=== PATIENT | female | born 1955 | race Caucasian/White ===

== ENCOUNTER → 2020-03-19 07:47 | Outpatient (CLI) | payer OTHER, SELFPAY ==
[2020-03-19] MEDS: COVID-19 VACC(MODERNA-1)/PF 100 MCG/0.5 ML VIAL IM (07:52)
== END ==
PROVIDERS: Visit Provider Internal Medicine
DX: Z23 Encounter for immunization (principal)
CPT/HCPCS: 0011A; 91301

== ENCOUNTER → 2020-04-16 07:37 | Outpatient (CLI) | payer OTHER, SELFPAY ==
[2020-04-16] MEDS: COVID-19 VACC #2, MRNA(MOD) 100 MCG/0.5 ML VIAL IM (07:40)
== END ==
PROVIDERS: Visit Provider Internal Medicine
DX: Z23 Encounter for immunization (principal)
CPT/HCPCS: 0012A; 91301

== ENCOUNTER 2021-01-11 06:28 | Day surgery (SDC) | payer OTHER, SELFPAY ==
[2021-01-11 06:50] VITALS: BP 146/86; PULSE 59; RESP 16; TEMP 36.8; O2SAT 100; BMI 22.6
[2021-01-11 07:03] LABS: COVID19 -Nasal RAPID Negative (Negative)
[2021-01-11 07:05] VITALS: BMI 22.6
[2021-01-11] MEDS: LACTATED RINGERS 1,000 ML 42 ML IV (07:07)
--- NOTE | 2021-01-11 07:55 | PM.HP.1 ---
History of Present Illness History of Present Illness Date Patient Seen: 01/11/21 Time Patient Seen: 07:55 Chief complaint: COLONOSCOPY Narrative: Personal history of colon polyps Patient History Family & Social History Social History: household members spouse Tobacco & Substance use: Smoking Status Never smoker alcohol intake frequency holiday/special occasion Substance Use Type marijuana Meds Home Medications and Allergies Allergies Allergy/AdvReac Type Severity Reaction Status Date / Time Sulfa (Sulfonamide AdvReac i feel Verified 01/11/21 06:48 Antibiotics) like there are bugs under my skin Review of Systems Review of Systems ROS: Yes All systems reviewed with the patient and are negative except as otherwise documented Exam Vital Signs (past 8 hours): - 01/11/21 06:50 Temperature 98.3 F Pulse Rate 59 L Respiratory Rate 16 Blood Pressure 146/86 H Pulse Oximetry 100 Oxygen Delivery Method Room Air Const General: cooperative and comfortable Orientation: alert HENMT Head: normocephalic Ears: external ears normal Nose: external nose normal Face and sinus: normal facial exam Mouth: oral mucosae normal Eyes General: appearance normal, both eyes and all related structures Neck Neck: normal visual inspection Chest Chest: normal inspection of the chest Resp Effort & Inspection: normal respiratory effort Cardio Rate: regular rate Heart Sounds: no murmurs GI Inspection: normal to inspection Palpation: soft and No tender Skin General: no rashes or lesions noted and No jaundice Neuro General: patient alert and moves all extremities Cognition: normal cognition Speech: speech normal Extrem General: no pedal edema Psych Appearance: grossly normal Objective Labs Labs: Laboratory Results - last 24 hr 01/10/21 06:40 SARS-CoV-2 (PCR) Negative Assessment & Plan Assessment & Plan narrative: Personal history of colon polyps. Colonoscopy is planned for today. Time Spent With Patient Critical Care time: I spent a total of [] minutes of critical care time on this patient's care today; this time is exclusive of procedural time.
--- NOTE | 2021-01-11 07:57 | PM.PREOP ---
Pre-operative Note COVID-19 COVID-19 status: Negative Result date/Date tested (Pos, Neg/Pending): 01/10/21 Interval Note History & Physical reviewed/Exam performed by Physician: Yes Changes to H&P: Yes H&P completed within 30 days and has changed as indicated here:: today ASA Class (for procedural sedation): I
--- NOTE | 2021-01-11 08:18 | PM.OP.COLON ---
Operative Date/Time/Diagnoses Date of procedure: 01/11/21 Time of procedure: 08:18 Pre-op diagnosis: Personal history of colon polyps Post-op diagnosis: same Procedure & Clinicians Study performed: Colonoscopy Same procedure as scheduled: Yes Indications: Personal history of colon polyps Surgeon: Thomas Berman Procedure Notes SCOAP/Timeout: Done Procedure in detail: After the risks and benefits were explained, written and verbal informed consent was obtained. The patient was brought into the procedure room and placed into the left lateral decubitus position. Please see nurse litigation coordinator details. Digital rectal examination was accomplished. The scope was introduced into the patient and advanced under direct visualization to the cecum as identified by the appendiceal orifice and ileocecal valve. The scope was slowly withdrawn to carefully examine the mucosa for any defects or lesions. Comprehensive imaging was accomplished throughout the rectum including the dentate line. The colon was decompressed, the scope was then removed from the patient who tolerated the procedure well. Pediatric colonoscope poor prep Scope withdrawal time: 6 minutes Sedation minutes: 15 Specimen(s): none sent Complications: none Impression: Prep was rather poor. Many areas had retained solid stool that could not be adequately cleansed with irrigation. Within the limitations of bowel prep I did not see any significant pathology. Patient had grade 2 internal nonbleeding nonthrombosed hemorrhoids. Endoscopic diagnosis 1. Suboptimal bowel prep 2. Grade 2 hemorrhoids Post-procedure Recommendations: Colonoscopy in 1 year Plan for aftercare: Repeat colonoscopy with an extra day of bowel prep in the next year or so would be appropriate. Disposition: PACU
[2021-01-11 08:19] VITALS: BP 107/67; PULSE 49; RESP 14; TEMP 36.3; O2SAT 98
[2021-01-11 08:24] VITALS: BP 105/67; PULSE 49; RESP 14; O2SAT 98
[2021-01-11 08:29] VITALS: BP 117/75; PULSE 52; RESP 12; O2SAT 98
[2021-01-11 08:34] VITALS: BP 115/75; PULSE 48; RESP 13; O2SAT 97
--- NOTE | 2021-01-11 08:40 | SUR.PHASEI ---
PACU in time = 0817. Computer will not allow me to change the time.
[2021-01-11 08:46] VITALS: BP 136/80; PULSE 49; TEMP 36.2; O2SAT 12
== END 2021-01-11 08:57 | disposition home or self-care (01) ==
PROVIDERS: PCP Physician Assistant; Referring Provider Internal Medicine Gastroenterology; Visit Provider Internal Medicine Gastroenterology
PROC: 0DJD8ZZ Inspection of Lower Intestinal Tract, Via Natural or Artificial Opening Endoscopic (ICD-10-PCS; CPT 45378; principal; 2021-01-11 08:00)
DX: Z12.11 Encounter for screening for malignant neoplasm of colon (principal); Z86.010 Personal history of colon polyps; Z20.822 Contact with and (suspected) exposure to COVID-19; K64.1 Second degree hemorrhoids
CPT/HCPCS: 45378; 87635; J2704

== ENCOUNTER → 2021-01-14 15:10 | Outpatient (CLI) | payer OTHER, SELFPAY ==
[2021-01-14] MEDS: COVID-19 VACC #3, MRNA(MOD) 50 MCG/0.25 ML VIAL IM (15:13)
== END ==
PROVIDERS: PCP Physician Assistant; Visit Provider Internal Medicine
DX: Z23 Encounter for immunization (principal)
CPT/HCPCS: 0013A; 91301

== ENCOUNTER → 2022-03-13 09:11 | Outpatient (CLI) | payer MEDICARE, SELFPAY ==
[2022-03-13 10:25] LABS: Add Manual Diff / Slide Review NO; Basophils Absolute Auto 0 /uL (0-100); Basophils Percent Auto 0.7 % (0-2); Eosinophils Absolute Auto 100 /uL (0-450); Eosinophils Percent Auto 0.9 % (2-4); Hematocrit 40.1 % (36-46); Hemoglobin 13.8 g/dL (12.0-16.0); Lymphocytes Absolute Auto 1200 /uL (1100-4500); Lymphocytes Percent Auto 21.4 % (25-40); Mean Corpuscular HGB Conc 34.3 % (30-36); Mean Corpuscular Hemoglobin 31.6 PG (26-34); Mean Corpuscular Volume 92.2 fL (80-100); Monocytes Absolute Auto 400 /uL (0-900); Monocytes Percent Auto 6.7 % (3-14); Neutrophils Absolute Auto 4000 /uL (1500-7000); Neutrophils Percent Auto 70.3 % (50-75); Platelet Count 227 X10^3/uL (150-400); Red Blood Cell Count 4.35 X10^6/uL (4.0-5.2); White Blood Cell Count 5.7 X10^3/uL (4.5-11.0)
[2022-03-13 10:43] LABS: Alanine Aminotransferase 24 IU/L (<35); Albumin 4.4 g/dL (3.5-5.0); Albumin Globulin Ratio 1.4 (1.0-2.8); Alkaline Phosphatase 68 U/L (38-126); Aspartate Aminotransferase 29 IU/L (14-36); BUN Creatinine Ratio 15.4 (6-22); Bilirubin Total 0.6 mg/dL (0.2-1.3); Blood Urea Nitrogen 12 mg/dL (7-17); Calcium 9.1 mg/dL (8.4-10.2); Carbon Dioxide 30 mmol/L (22-32); Chloride 103 mmol/L (98-107); Cholesterol 210 mg/dL (140-199); Estimated Glomerular Filt Rate > 60 mL/min (>60); Globulin 3.2 g/dL (1.7-4.1); Glucose 87 mg/dL (80-110); HDL Cholesterol 52 mg/dL (40-60); HEMOLYSIS < 15 (0-50); LDL Cholesterol Calculated 132 mg/dL (<100); Potassium 4.1 mmol/L (3.4-5.1); Sodium 139 mmol/L (137-145); Total Protein 7.6 g/dL (6.3-8.2); Triglycerides 132 mg/dL (35-150)
== END ==
PROVIDERS: PCP Family Medicine; Referring Provider Family Medicine; Visit Provider Family Medicine
DX: J30.9 Allergic rhinitis, unspecified (principal); Z13.220 Encounter for screening for lipoid disorders; R03.0 Elevated blood-pressure reading, without diagnosis of hypertension; Z00.00 Encounter for general adult medical examination without abnormal findings; Z13.1 Encounter for screening for diabetes mellitus
CPT/HCPCS: 36415; 80053; 80061; 83036; 85025

== ENCOUNTER → 2022-08-11 13:49 | Outpatient (CLI) | payer MEDICARE, SELFPAY ==
[2022-08-14 10:38] LABS: Fecal Immunochemical Test Negative (Negative)
== END ==
PROVIDERS: PCP Family Medicine; Referring Provider Family Medicine; Visit Provider Family Medicine
DX: Z12.11 Encounter for screening for malignant neoplasm of colon (principal)
CPT/HCPCS: 82274